=== PATIENT | female | born 1985 | race Caucasian/White ===

== ENCOUNTER 2018-07-07 17:25 | Emergency (ER) | payer BC, MEDICAID ==
[2018-07-07 17:38] VITALS: RESP 18
[2018-07-07] MEDS ORDERED: CYCLOBENZAPRINE 10MG STARTER 3 TAB BTL PO STA (18:17)
[2018-07-07] MEDS ORDERED: DIAZEPAM 5 MG TAB PO STA (18:17)
[2018-07-07] MEDS ORDERED: KETOROLAC 60 MG/2 ML VIAL IM STA (18:18)
--- NOTE | 2018-07-07 18:20 | ED ---
Neck Injury/Pain HPI - General Chief Complaint: Neck Pain/Injury Stated Complaint: NECK PAIN Time Seen by Provider: 07/07/18 17:37 Mode of arrival: ambulatory Limitations: no limitations - History of Present Illness Initial Comments: 33-year-old female with no past medical history presenting today for chief complaint of neck pain on the left side. Patient states that she woke up with left-sided neck pain. She states she is unable to turn for the left due to pain. Patient denies any trauma. Patient denies any fever or chills night sweats, nausea vomiting, neck injury. Patient also numbness tingling or loss sensation of the upper extremity. Patient denies any history of cancer. Patient denies any dizziness. patient states she has had upper respiratory symptoms. Denies photophobia. Denies right-sided neck pain. Remaining review of system negative, Patient denies any recent shortness of breath, chest pain, back pain, abdominal pain, nausea or vomiting, numbness or tingling, dysuria or hematuria, constipation or diarrhea, headaches or visual changes, or any other complaints.patient states the pain is reproducible to palpation. Patient states with her neck still there is decreased pain agitated with rotation to the left. - Related Data Home Medications Medication Instructions Recorded Confirmed 78/Iron/Folate 1/Dha 1 each PO DAILY 10/10/15 10/10/15 [Prenate Dha Softgel] Previous Rx's Medication Instructions Recorded Ibuprofen [Motrin] 600 mg PO Q6HR PRN #30 tab 10/12/15 Cyclobenzaprine [Flexeril] 10 mg PO TID PRN 7 Days #21 tab 07/07/18 Ibuprofen 800 mg PO Q8H PRN 7 Days #21 tablet 07/07/18 Allergies Allergy/AdvReac Type Severity Reaction Status Date / Time No Known Allergies Allergy Verified 10/10/15 22:09 Review of Systems ROS Statement: Those systems with pertinent positive or pertinent negative responses have been documented in the HPI. ROS Other: All systems not noted in ROS Statement are negative. Past Medical History Past Medical History: No Reported History History of Any Multi-Drug Resistant Organisms: None Reported Additional Past Surgical History / Comment(s): colposcopy Past Anesthesia/Blood Transfusion Reactions: No Reported Reaction Past Psychological History: No Psychological Hx Reported Smoking Status: Never smoker Past Alcohol Use History: Occasional Past Drug Use History: None Reported - Past Family History Father Family Medical History: No Reported History General Exam - General Exam Comments Initial Comments: General: The patient is awake and alert, in no distress, and does not appear acutely ill. Eye: +3 mm pupils are equal, round and reactive to light, extra-ocular movements are intact. No nystagmus. There is normal conjunctiva bilaterally. No signs of icterus. Ears, nose, mouth and throat: There are moist mucous membranes and no oral lesions. no photophobia. (-) [place] Neck: The neck is supple, there is no tenderness or JVD. no midline tenderness to palpation of the cervical spine. There is left-sided palpable muscle tension and spasm. As well as paravertebral tenderness on the left side. No paravertebral tenderness of the right side of the neck muscle spasm. patient limited motion of the cervical spine to the left second to pain. Cardiovascular: There is a regular rate and rhythm. No murmur, rub or gallop is appreciated. Respiratory: Lungs are clear to auscultation, respirations are non-labored, breath sounds are equal. No wheezes, stridor, rales, or rhonchi. Gastrointestinal: Soft, non-distended, non-tender abdomen without masses or organomegaly noted. There is no rebound or guarding present. Musculoskeletal: Normal ROM, no tenderness. Strength 5/5 of UE. Sensation intact of UE. Radial pulses equal bilaterally 2+. Neurological: A&O x 3. CN II-XII intact, There are no obvious motor or sensory deficits. Coordination appears grossly intact. Speech is normal. Skin: Skin is warm and dry and no rashes or lesions are noted. Psychiatric: Cooperative, appropriate mood & affect, normal judgment. Limitations: no limitations Course Vital Signs 07/07/18 07/07/18 17:29 19:18 Temperature 98.2 F 98.4 F Pulse Rate 97 70 Respiratory 18 18 Rate Blood Pressure 127/86 133/84 O2 Sat by Pulse 98 98 Oximetry Medical Decision Making - Medical Decision Making well-appearing 33-year-old female presenting today for chief complaint of left- sided neck pain. The pain is posterior left side of neck-palpable spasm. Along the trapezius muscle. Patient exam concerning for muscle skeletal cause. No midline tenderness. Imaging studies negative for acute osseous process. Patient given symptomatic treatment. Patient states she has not had basic laboratory studies and a long time patient basic laboratory studies within normal limits. Patient appears well. No additional complaints. No focal deficits. No concerning history. At this time for patient is stable for discharge with outpatient symptomatic treatment and follow-up with primary care provider. Patient is agreeable plan discharge. Denies question at this time. Did discuss case attending cheri Zuleta prior to patient's discharge is agreeable plan - Lab Data Result diagrams: 07/07/18 18:30 07/07/18 18:30 Lab Results 07/07/18 07/07/18 Range/Units 18:30 18:30 WBC 8.2 (3.8-10.6) k/uL RBC 4.73 (3.80-5.40) m/uL Hgb 14.1 (11.4-16.0) gm/dL Hct 39.9 (34.0-46.0) % MCV 84.3 (80.0-100.0) fL MCH 29.8 (25.0-35.0) pg MCHC 35.4 (31.0-37.0) g/dL RDW 13.5 (11.5-15.5) % Plt Count 278 (150-450) k/uL Neutrophils % 65 % Lymphocytes % 26 % Monocytes % 5 % Eosinophils % 1 % Basophils % 1 % Neutrophils # 5.3 (1.3-7.7) k/uL Lymphocytes # 2.1 (1.0-4.8) k/uL Monocytes # 0.4 (0-1.0) k/uL Eosinophils # 0.1 (0-0.7) k/uL Basophils # 0.0 (0-0.2) k/uL Sodium 141 (137-145) mmol/L Potassium 4.1 (3.5-5.1) mmol/L Chloride 105 (98-107) mmol/L Carbon Dioxide 25 (22-30) mmol/L Anion Gap 11 mmol/L BUN 10 (7-17) mg/dL Creatinine 0.48 L (0.52-1.04) mg/dL Est GFR (CKD-EPI)AfAm >90 (>60 ml/min/1.73 sqM) Est GFR (CKD-EPI)NonAf >90 (>60 ml/min/1.73 sqM) Glucose 103 H (74-99) mg/dL Calcium 9.2 (8.4-10.2) mg/dL Total Bilirubin 0.5 (0.2-1.3) mg/dL AST 27 (14-36) U/L ALT 51 (9-52) U/L Alkaline Phosphatase 69 (38-126) U/L Total Protein 7.3 (6.3-8.2) g/dL Albumin 4.3 (3.5-5.0) g/dL Lipase 153 (23-300) U/L Disposition Clinical Impression: Acute strain of neck muscle Disposition: HOME SELF-CARE Instructions (If sedation given, give patient instructions): Cervical Strain (ED), Acute Neck Pain (ED) Additional Instructions: Please use medication as discussed. Please follow-up with family doctor in the next 2 days.. Please return to emergency room if the symptoms increase or wor sen or for any other concerns. Prescriptions: Cyclobenzaprine [Flexeril] 10 mg PO TID PRN 7 Days #21 tab PRN Reason: Muscle Spasm Ibuprofen 800 mg PO Q8H PRN 7 Days #21 tablet PRN Reason: Pain Is patient prescribed a controlled substance at d/c from ED?: No Referrals: Suman Masterson DO [Primary Care Provider] - 1-2 days Time of Disposition: 18:20
[2018-07-07 18:57] LABS: Basophils % (A) 1 %; Eosinophils # (A) 0.1 k/uL (0-0.7); Eosinophils % (A) 1 %; HCT 39.9 % (34.0-46.0); HGB 14.1 gm/dL (11.4-16.0); Lymphocytes # (A) 2.1 k/uL (1.0-4.8); Lymphocytes % (A) 26 %; MCH 29.8 pg (25.0-35.0); MCHC 35.4 g/dL (31.0-37.0); MCV 84.3 fL (80.0-100.0); Mean Platelet Volume 6.8; Monocytes # (A) 0.4 k/uL (0-1.0); Monocytes % (A) 5 %; Neutrophils # (A) 5.3 k/uL (1.3-7.7); Neutrophils % (A) 65 %; Platelet Count 278 k/uL (150-450); RBC 4.73 m/uL (3.80-5.40); RDW 13.5 % (11.5-15.5); WBC 8.2 k/uL (3.8-10.6)
[2018-07-07 19:04] LABS: ALT 51 U/L (9-52); AST 27 U/L (14-36); Albumin 4.3 g/dL (3.5-5.0); Alkaline Phosphatase 69 U/L (38-126); Anion Gap 11 mmol/L; Blood Urea Nitrogen 10 mg/dL (7-17); Calcium 9.2 mg/dL (8.4-10.2); Carbon Dioxide 25 mmol/L (22-30); Chloride 105 mmol/L (98-107); Glucose 103 mg/dL (74-99); Lipase 153 U/L (23-300); Potassium 4.1 mmol/L (3.5-5.1); Sodium 141 mmol/L (137-145); Total Bilirubin 0.5 mg/dL (0.2-1.3); Total Protein 7.3 g/dL (6.3-8.2)
[2018-07-07 19:19] VITALS: BP 133/84; PULSE 70; TEMP 98.4
== END 2018-07-07 19:26 | disposition home or self-care (01) ==
LOC: EC 17:25
DX: S16.1XXA Strain of muscle, fascia and tendon at neck level, initial encounter (principal); R09.89 Other specified symptoms and signs involving the circulatory and respiratory systems; X58.XXXA Exposure to other specified factors, initial encounter
CPT/HCPCS: 36415; 80053; 83690; 85025; 99283; 96372; J1885

== ENCOUNTER 2018-09-26 06:36 | Emergency (ER) | payer MEDICAID ==
[2018-09-26] MEDS ORDERED: SODIUM CHLORIDE 0.9% 1,000 ML IV STA (07:00)
[2018-09-26] MEDS ORDERED: FAMOTIDINE 20 MG/2 ML VIAL IV STA (07:14)
[2018-09-26 07:27] LABS: Appearance,Urine Cloudy (Clear); Bacteria,Urine Rare /hpf; Bilirubin,Urine Negative (Negative); Blood,Urine Trace (Negative); Color,Urine Yellow; Glucose,Urine (UA) Negative (Negative); Ketones,Urine Negative (Negative); Leukocyte Esterase,Urine Trace (Negative); Mucus,Urine Moderate /hpf; Nitrite,Urine Negative (Negative); Protein,Urine Trace (Negative); RBC,Urine 4 /hpf (0-5); Specific Gravity,Urine 1.034 (1.001-1.035); Squamous Epithelial Cell,Urine 6 /hpf (0-4); Urobilinogen,Urine <2.0 mg/dL (<2.0)
[2018-09-26 07:33] LABS: ALT 58 U/L (9-52); AST 33 U/L (14-36); Albumin 4.3 g/dL (3.5-5.0); Alkaline Phosphatase 62 U/L (38-126); Amylase 66 U/L (30-110); Anion Gap 11 mmol/L; Blood Urea Nitrogen 12 mg/dL (7-17); Carbon Dioxide 23 mmol/L (22-30); Chloride 104 mmol/L (98-107); Glucose 103 mg/dL (74-99); Lipase 93 U/L (23-300); Potassium 4.1 mmol/L (3.5-5.1); Sodium 138 mmol/L (137-145); Total Bilirubin 0.5 mg/dL (0.2-1.3); Total Protein 7.1 g/dL (6.3-8.2)
[2018-09-26 07:34] LABS: Basophils % (A) 0 %; Eosinophils # (A) 0.1 k/uL (0-0.7); Eosinophils % (A) 2 %; HCT 41.8 % (34.0-46.0); HGB 14.1 gm/dL (11.4-16.0); Lymphocytes # (A) 2.2 k/uL (1.0-4.8); Lymphocytes % (A) 25 %; MCH 28.5 pg (25.0-35.0); MCHC 33.7 g/dL (31.0-37.0); MCV 84.4 fL (80.0-100.0); Mean Platelet Volume 7.3; Monocytes # (A) 0.2 k/uL (0-1.0); Monocytes % (A) 3 %; Neutrophils % (A) 70 %; Platelet Count 260 k/uL (150-450); RBC 4.95 m/uL (3.80-5.40); RDW 14.3 % (11.5-15.5); WBC 8.7 k/uL (3.8-10.6)
--- NOTE | 2018-09-26 07:43 | ED ---
Abdominal Pain HPI - General Chief Complaint: Abdominal Pain Stated Complaint: abd pain Time Seen by Provider: 09/26/18 07:00 Source: patient, RN notes reviewed Mode of arrival: ambulatory Limitations: no limitations - History of Present Illness Initial Comments: 33-year-old female presents emergency Department chief complaint of upper abdominal pain. Patient states last 2 nights she's had extreme pain in [place] night in her epigastric and right upper quadrant region. Patient states that his been exacerbated by anything, patient states it wakes up from her sleep. Patient states at the time nothing makes it feel better or worse. Patient denies any change in oral intake. She has no food bothered her at this time denies any reflux denies diarrhea, constipation, nausea vomiting. Patient's had no prior abdominal surgeries. Patient does take control and denies any chance . Denies chest pain or shortness breath. Patient states that a few months ago she had similar complaints of this but it resolved on its own. - Related Data Home Medications Medication Instructions Recorded Confirmed Norgestimate-Ethinyl Estradiol 1 tab PO DAILY 09/26/18 09/26/18 [Gsw-Lk-Gfvnaigq Tablet] valACYclovir HCL [Valtrex] 1,000 mg PO DAILY 09/26/18 09/26/18 Allergies Allergy/AdvReac Type Severity Reaction Status Date / Time No Known Allergies Allergy Verified 09/26/18 08:03 Review of Systems ROS Statement: Those systems with pertinent positive or pertinent negative responses have been documented in the HPI. ROS Other: All systems not noted in ROS Statement are negative. Past Medical History Past Medical History: No Reported History History of Any Multi-Drug Resistant Organisms: None Reported Additional Past Surgical History / Comment(s): colposcopy Past Anesthesia/Blood Transfusion Reactions: No Reported Reaction Past Psychological History: No Psychological Hx Reported Smoking Status: Never smoker Past Alcohol Use History: Occasional Past Drug Use History: None Reported - Past Family History Father Family Medical History: No Reported History General Exam Limitations: no limitations General appearance: alert, in no apparent distress Head exam: Present: atraumatic, normocephalic, normal inspection Respiratory exam: Present: normal lung sounds bilaterally. Absent: respiratory distress, wheezes, rales, rhonchi, stridor Cardiovascular Exam: Present: regular rate, normal rhythm, normal heart sounds. Absent: systolic murmur, diastolic murmur, rubs, gallop, clicks GI/Abdominal exam: Present: soft, tenderness (Mild right upper quadrant and ep igastric tenderness), normal bowel sounds. Absent: distended, guarding, rebound, rigid Back exam: Absent: CVA tenderness (R), CVA tenderness (L) Neurological exam: Present: alert Skin exam: Present: warm, dry, intact, normal color. Absent: rash Course Vital Signs 09/26/18 06:40 Temperature 97.5 F L Pulse Rate 84 Respiratory 20 Rate Blood Pressure 136/84 O2 Sat by Pulse 99 Oximetry Medical Decision Making - Medical Decision Making 33-year-old female presented from for abdominal pain. Patient gallbladder is enlarged, mild thickening. Patient has minimal dilated common bile left with no stones. Patient's symptoms are very mild this time we discussed inpatient versus outpatient follow-up. Patient will follow-up with her PCP and surgeon. Return parameters were discussed. - Lab Data Result diagrams: 09/26/18 07:02 09/26/18 07:02 Lab Results 09/26/18 09/26/18 09/26/18 Range/Units 07:02 07:02 07:02 WBC 8.7 (3.8-10.6) k/uL RBC 4.95 (3.80-5.40) m/uL Hgb 14.1 (11.4-16.0) gm/dL Hct 41.8 (34.0-46.0) % MCV 84.4 (80.0-100.0) fL MCH 28.5 (25.0-35.0) pg MCHC 33.7 (31.0-37.0) g/dL RDW 14.3 (11.5-15.5) % Plt Count 260 (150-450) k/uL Neutrophils % 70 % Lymphocytes % 25 % Monocytes % 3 % Eosinophils % 2 % Basophils % 0 % Neutrophils # 6.0 (1.3-7.7) k/uL Lymphocytes # 2.2 (1.0-4.8) k/uL Monocytes # 0.2 (0-1.0) k/uL Eosinophils # 0.1 (0-0.7) k/uL Basophils # 0.0 (0-0.2) k/uL Sodium 138 (137-145) mmol/L Potassium 4.1 (3.5-5.1) mmol/L Chloride 104 (98-107) mmol/L Carbon Dioxide 23 (22-30) mmol/L Anion Gap 11 mmol/L BUN 12 (7-17) mg/dL Creatinine 0.53 (0.52-1.04) mg/dL Est GFR (CKD-EPI)AfAm >90 (>60 ml/min/1.73 sqM) Est GFR (CKD-EPI)NonAf >90 (>60 ml/min/1.73 sqM) Glucose 103 H (74-99) mg/dL Calcium 10.0 (8.4-10.2) mg/dL Total Bilirubin 0.5 (0.2-1.3) mg/dL AST 33 (14-36) U/L ALT 58 H (9-52) U/L Alkaline Phosphatase 62 (38-126) U/L Total Protein 7.1 (6.3-8.2) g/dL Albumin 4.3 (3.5-5.0) g/dL Amylase 66 (30-110) U/L Lipase 93 (23-300) U/L Urine Color Urine Appearance (Clear) Urine pH (5.0-8.0) Ur Specific [place] (1.001-1.035) Urine Protein (Negative) Urine Glucose (UA) (Negative) Urine Ketones (Negative) Urine Blood (Negative) Urine Nitrite (Negative) Urine Bilirubin (Negative) Urine Urobilinogen (<2.0) mg/dL Ur Leukocyte Esterase (Negative) Urine RBC (0-5) /hpf Urine WBC (0-5) /hpf Ur Squamous Epith Cells (0-4) /hpf Urine Bacteria (None) /hpf Urine Mucus (None) /hpf Urine HCG, Qual Not Detected (Not Detectd) 09/26/18 Range/Units 07:02 WBC (3.8-10.6) k/uL RBC (3.80-5.40) m/uL Hgb (11.4-16.0) gm/dL Hct (34.0-46.0) % MCV (80.0-100.0) fL MCH (25.0-35.0) pg MCHC (31.0-37.0) g/dL RDW (11.5-15.5) % Plt Count (150-450) k/uL Neutrophils % % Lymphocytes % % Monocytes % % Eosinophils % % Basophils % % Neutrophils # (1.3-7.7) k/uL Lymphocytes # (1.0-4.8) k/uL Monocytes # (0-1.0) k/uL Eosinophils # (0-0.7) k/uL Basophils # (0-0.2) k/uL Sodium (137-145) mmol/L Potassium (3.5-5.1) mmol/L Chloride (98-107) mmol/L Carbon Dioxide (22-30) mmol/L Anion Gap mmol/L BUN (7-17) mg/dL Creatinine (0.52-1.04) mg/dL Est GFR (CKD-EPI)AfAm (>60 ml/min/1.73 sqM) Est GFR (CKD-EPI)NonAf (>60 ml/min/1.73 sqM) Glucose (74-99) mg/dL Calcium (8.4-10.2) mg/dL Total Bilirubin (0.2-1.3) mg/dL AST (14-36) U/L ALT (9-52) U/L Alkaline Phosphatase (38-126) U/L Total Protein (6.3-8.2) g/dL Albumin (3.5-5.0) g/dL Amylase (30-110) U/L Lipase (23-300) U/L Urine Color Yellow Urine Appearance Cloudy H (Clear) Urine pH 6.0 (5.0-8.0) Ur Specific [place] 1.034 (1.001-1.035) Urine Protein Trace H (Negative) Urine Glucose (UA) Negative (Negative) Urine Ketones Negative (Negative) Urine Blood Trace H (Negative) Urine Nitrite Negative (Negative) Urine Bilirubin Negative (Negative) Urine Urobilinogen <2.0 (<2.0) mg/dL Ur Leukocyte Esterase Trace H (Negative) Urine RBC 4 (0-5) /hpf Urine WBC 3 (0-5) /hpf Ur Squamous Epith Cells 6 H (0-4) /hpf Urine Bacteria Rare H (None) /hpf Urine Mucus Moderate H (None) /hpf Urine HCG, Qual (Not Detectd) Disposition Clinical Impression: Dysfunctional gallbladder, Biliary colic, Enlarged gallbladder Disposition: HOME SELF-CARE Condition: Stable Instructions (If sedation given, give patient instructions): Abdominal Pain (ED) Additional Instructions: Please return to the Emergency Department if symptoms worsen or any other concerns. Is patient prescribed a controlled substance at d/c from ED?: No Referrals: Suman Masterson DO [Primary Care Provider] - 1-2 days Lydia Farrar MD [STAFF PHYSICIAN] - 1-2 days Time of Disposition: 08:25
--- NOTE | 2018-09-26 08:10 | US ---
EXAMINATION TYPE: US abdomen limited DATE OF EXAM: 09/26/2018 COMPARISON: NONE CLINICAL HISTORY: Pain. Abd pain x 2 nights, no N/V EXAM MEASUREMENTS: Liver Length: 15.0 cm Gallbladder Wall: 0.4 cm CBD: 0.7 cm Right Kidney: 9.5 x 5.7 x 4.1cm cm Pancreas: wnl Liver: difficult to penetrate, there is a coarse echotexture, intercostal imaging appears wnl Gallbladder: hydropic in appearance with largest measurement of 12.5cm Evidence for sonographic Posada's sign: not during exam but patient says that is where is hurts wh en she has an episode. CBD: Dilated Right Kidney: wnl There is no ascites. IMPRESSION: There are some limitations to the exam. Correlate for hepatic steatosis, hepatocellular d isease. Common bile duct is dilated with borderline gallbladder wall thickening, consider gastroenter ology, surgical consult.
[2018-09-26] MEDS ORDERED: ONDANSETRON 4 MG ODT STARTER PACK 2 TAB BTL PO STA (08:25)
[2018-09-26] MEDS ORDERED: ACET/COD 300 MG/30 MG STARTER PACK 6 TAB BTL PO STA (08:25)
[2018-09-26 08:51] VITALS: BP 113/92; PULSE 62; RESP 16; TEMP 98
== END 2018-09-26 08:36 | disposition home or self-care (01) ==
LOC: EC 06:36
DX: K80.50 Calculus of bile duct without cholangitis or cholecystitis without obstruction (principal); K82.8 Other specified diseases of gallbladder; Z79.3 Long term (current) use of hormonal contraceptives
CPT/HCPCS: 36415; 80053; 82150; 83690; 85025; 81001; 81025; 76705; 99284; 96374; 96361; S0119

== ENCOUNTER → 2019-02-01 | Outpatient (CLI) | payer MEDICAID ==
--- NOTE | 2019-02-01 09:07 | NM ---
EXAMINATION TYPE: NM hepatobiliary w CCK DATE OF EXAM: 02/01/2019 COMPARISON: NONE INDICATION: Right upper quadrant pain TECHNIQUE: After the intravenous administration of 4.38 mCi Tc 99m Mebrofenin hepatobiliary scintigra phy is performed. Images were obtained immediately post injection. FINDINGS: There is prompt uptake and excretion of radiotracer by the liver. Extrahepatic ducts are identified at 7 minutes. The gallbladder is visualized within 30 seconds minutes. Small bowel activity is noted within 14 minutes. At one hour CCK was administered, patient was injected with 1.4 mcg of Kinevac, and gallbladder eject ion fraction is calculated at 17 %, which is low. (Normal >35% and <80%.). IMPRESSION: 1. Biliary hypokinesia. No obstruction is evident.
== END | disposition home or self-care (01) ==
LOC: RADNMMAIN 06:55
PROVIDERS: ATTEND Family Medicine
DX: K83.8 Other specified diseases of biliary tract (principal)
CPT/HCPCS: 78227; A9537; J2805

== ENCOUNTER 2019-07-08 02:51 | Emergency (ER) | payer MEDICAID ==
[2019-07-08 02:58] VITALS: BP 159/107; PULSE 79; RESP 16; TEMP 97.8
[2019-07-08] MEDS ORDERED: ONDANSETRON 4 MG/2 ML VIAL IVP STA (03:06)
[2019-07-08] MEDS ORDERED: SODIUM CHLORIDE 0.9% 1,000 ML IV STA (03:06)
[2019-07-08] MEDS ORDERED: KETOROLAC 30 MG/ML 1 ML VIAL IVP STA (03:06)
--- NOTE | 2019-07-08 03:23 | ED ---
Abdominal Pain HPI - General Chief Complaint: Abdominal Pain Stated Complaint: Gall Bladder Time Seen by Provider: 07/08/19 02:59 Source: patient Mode of arrival: ambulatory Limitations: no limitations - History of Present Illness Initial Comments: Patient is a 34-year-old female presenting to emergency Department with chief complaint of collar pain. Patient states few months ago she had a high-risk and perform showing no obvious signs of obstruction but did show improper function of the biliary tree. Patient states she typically has "stomach attacks" quickly but the last about 30 minutes. Patient states this one has lasted several hours. States this is a continuous sharp sensation in the right upper quadrant. States the pain is not exacerbated with by mouth intake. Does report some nausea but denies any vomiting. Denies diarrhea or constipation. Denies fevers or chills. Does report taking Tylenol home which typically alleviates his symptoms but not this time. - Related Data Home Medications Medication Instructions Recorded Confirmed Norgestimate-Ethinyl Estradiol 1 tab PO DAILY 09/26/18 09/26/18 [Ary-Mw-Ejqaawby Tablet] valACYclovir HCL [Valtrex] 1,000 mg PO DAILY 09/26/18 09/26/18 Allergies Allergy/AdvReac Type Severity Reaction Status Date / Time No Known Allergies Allergy Verified 07/08/19 02:58 Review of Systems ROS Statement: Those systems with pertinent positive or pertinent negative responses have been documented in the HPI. ROS Other: All systems not noted in ROS Statement are negative. Past Medical History Past Medical History: No Reported History History of Any Multi-Drug Resistant Organisms: None Reported Additional Past Surgical History / Comment(s): colposcopy Past Anesthesia/Blood Transfusion Reactions: No Reported Reaction Past Psychological History: No Psychological Hx Reported Smoking Status: Never smoker Past Alcohol Use History: Occasional Past Drug Use History: None Reported - Past Family History Father Family Medical History: No Reported History General Exam Limitations: no limitations General appearance: alert, in no apparent distress Head exam: Present: atraumatic, normocephalic, normal inspection Eye exam: Present: normal appearance Pupils: Present: normal accommodation ENT exam: Present: normal exam Neck exam: Present: normal inspection, full ROM Respiratory exam: Present: normal lung sounds bilaterally Cardiovascular Exam: Present: regular rate, normal rhythm, normal heart sounds GI/Abdominal exam: Present: soft, tenderness (Right upper quadrant abdominal tenderness. Negative Posada's sign). Absent: distended, guarding, rebound, rigid Extremities exam: Present: normal inspection, full ROM Back exam: Present: normal inspection, full ROM Neurological exam: Present: alert, oriented X3 Psychiatric exam: Present: normal affect, normal mood Skin exam: Present: warm, dry, intact, normal color Course Vital Signs 07/08/19 02:56 Temperature 97.8 F Pulse Rate 79 Respiratory 16 Rate Blood Pressure 159/107 O2 Sat by Pulse 99 Oximetry Medical Decision Making - Medical Decision Making Patient is a 34-year-old female with history of colicky pain presenting to emergency Department with a chief complaint of gallbladder pain. Patient appears to the right upper quadrant tenderness with a negative Posada sign. Patient had a HIDA scan performed 5 months ago showing no signs of obstruction but was positive for biliary hypokinesia. Patient had a recent abdominal ultrasound performed showing no obvious sign of obstruction. Laboratory work shows mild elevation in transaminases but otherwise unremarkable. This type of pain is typical for a patient and they usually last for about 30 minutes but this will last a more usual which is what she came in. Patient was given fluids, antiemetics and Toradol. On reevaluation patient reports the pain has completely resolved. Patient states she is comfortable going home. Her vitals are stable. Patient reports typically she tries to avoid eating any fatty food. Return parameters were thoroughly discussed with patient was understanding and agreeable. Case discussed with physician. - Lab Data Result diagrams: 07/08/19 03:43 07/08/19 03:43 Lab Results 07/08/19 07/08/19 07/08/19 Range/Units 03:43 03:43 03:43 WBC 7.3 (3.8-10.6) k/uL RBC 4.67 (3.80-5.40) m/uL Hgb 13.7 (11.4-16.0) gm/dL Hct 39.6 (34.0-46.0) % MCV 84.7 (80.0-100.0) fL MCH 29.2 (25.0-35.0) pg MCHC 34.5 (31.0-37.0) g/dL RDW 12.6 (11.5-15.5) % Plt Count 224 (150-450) k/uL Neutrophils % 56 % Lymphocytes % 35 % Monocytes % 4 % Eosinophils % 2 % Basophils % 0 % Neutrophils # 4.1 (1.3-7.7) k/uL Lymphocytes # 2.5 (1.0-4.8) k/uL Monocytes # 0.3 (0-1.0) k/uL Eosinophils # 0.2 (0-0.7) k/uL Basophils # 0.0 (0-0.2) k/uL Sodium 135 L (137-145) mmol/L Potassium 4.1 (3.5-5.1) mmol/L Chloride 101 (98-107) mmol/L Carbon Dioxide 25 (22-30) mmol/L Anion Gap 9 mmol/L BUN 10 (7-17) mg/dL Creatinine 0.55 (0.52-1.04) mg/dL Est GFR (CKD-EPI)AfAm >90 (>60 ml/min/1.73 sqM) Est GFR (CKD-EPI)NonAf >90 (>60 ml/min/1.73 sqM) Glucose 99 (74-99) mg/dL Calcium 9.0 (8.4-10.2) mg/dL Total Bilirubin 0.4 (0.2-1.3) mg/dL AST 28 (14-36) U/L ALT 38 H (4-34) U/L Alkaline Phosphatase 66 (38-126) U/L Total Protein 7.2 (6.3-8.2) g/dL Albumin 4.4 (3.5-5.0) g/dL Amylase 53 (30-110) U/L Lipase 109 (23-300) U/L Urine Color Yellow Urine Appearance Clear (Clear) Urine pH 6.0 (5.0-8.0) Ur Specific [place] 1.028 (1.001-1.035) Urine Protein Trace H (Negative) Urine Glucose (UA) Negative (Negative) Urine Ketones Negative (Negative) Urine Blood Negative (Negative) Urine Nitrite Negative (Negative) Urine Bilirubin Negative (Negative) Urine Urobilinogen <2.0 (<2.0) mg/dL Ur Leukocyte Esterase Negative (Negative) Disposition Clinical Impression: Abdominal pain, Right upper quadrant abdominal pain Disposition: HOME SELF-CARE Condition: Stable Instructions (If sedation given, give patient instructions): Abdominal Pain (ED) Additional Instructions: Alternate between Tylenol and Motrin for pain control. Follow-up with Dr. Pryor. Return to emergency department if symptoms worsen. Is patient prescribed a controlled substance at d/c from ED?: No Referrals: Suman Masterson DO [Primary Care Provider] - 1-2 days Time of Disposition: 04:26
[2019-07-08 03:56] LABS: Appearance,Urine Clear (Clear); Basophils % (A) 0 %; Bilirubin,Urine Negative (Negative); Blood,Urine Negative (Negative); Color,Urine Yellow; Eosinophils # (A) 0.2 k/uL (0-0.7); Eosinophils % (A) 2 %; Glucose,Urine (UA) Negative (Negative); HCT 39.6 % (34.0-46.0); HGB 13.7 gm/dL (11.4-16.0); Ketones,Urine Negative (Negative); Leukocyte Esterase,Urine Negative (Negative); Lymphocytes # (A) 2.5 k/uL (1.0-4.8); Lymphocytes % (A) 35 %; MCH 29.2 pg (25.0-35.0); MCHC 34.5 g/dL (31.0-37.0); MCV 84.7 fL (80.0-100.0); Mean Platelet Volume 7.5; Monocytes # (A) 0.3 k/uL (0-1.0); Monocytes % (A) 4 %; Neutrophils # (A) 4.1 k/uL (1.3-7.7); Neutrophils % (A) 56 %; Nitrite,Urine Negative (Negative); Platelet Count 224 k/uL (150-450); Protein,Urine Trace (Negative); RBC 4.67 m/uL (3.80-5.40); RDW 12.6 % (11.5-15.5); Specific Gravity,Urine 1.028 (1.001-1.035); Urobilinogen,Urine <2.0 mg/dL (<2.0); WBC 7.3 k/uL (3.8-10.6)
[2019-07-08 04:04] LABS: ALT 38 U/L (4-34); AST 28 U/L (14-36); African American GFR (CKD) >90 (>60 ml/min/1.73 sqM); Albumin 4.4 g/dL (3.5-5.0); Alkaline Phosphatase 66 U/L (38-126); Amylase 53 U/L (30-110); Anion Gap 9 mmol/L; Blood Urea Nitrogen 10 mg/dL (7-17); Carbon Dioxide 25 mmol/L (22-30); Chloride 101 mmol/L (98-107); Glucose 99 mg/dL (74-99); Non-African American GFR(CKD) >90 (>60 ml/min/1.73 sqM); Potassium 4.1 mmol/L (3.5-5.1); Sodium 135 mmol/L (137-145); Total Bilirubin 0.4 mg/dL (0.2-1.3); Total Protein 7.2 g/dL (6.3-8.2)
== END 2019-07-08 04:41 | disposition home or self-care (01) ==
LOC: EC 02:51
DX: R10.11 Right upper quadrant pain (principal); R74.0 Nonspecific elevation of levels of transaminase and lactic acid dehydrogenase [LDH]; R11.0 Nausea; Z79.3 Long term (current) use of hormonal contraceptives
CPT/HCPCS: 36415; 80053; 82150; 83690; 85025; 81003; 99284; 96374; 96375; 96361; J2405; J1885

== ENCOUNTER 2019-07-15 | Day surgery (SDC) | payer MEDICAID | END 2019-07-15 11:07 | disposition home or self-care (01) | CPT/HCPCS: 81025; 88304; 47562; J2250; J1200; J1644; J1100; J2710; J0690; J2405; J2001; J3010; J1885; J0330; J2704; J1170 ==

== ENCOUNTER 2019-07-15 01:32 | Emergency (ER) | payer MEDICAID ==
[2019-07-15] MEDS ORDERED: SODIUM CHLORIDE 0.9% 1,000 ML IV STA (01:54)
[2019-07-15] MEDS ORDERED: ONDANSETRON 4 MG/2 ML VIAL IVP STA (01:54)
[2019-07-15] MEDS ORDERED: MORPHINE SULFATE 4 MG/ML SYRINGE IV STA (01:54)
[2019-07-15 02:20] LABS: Basophils % (A) 0 %; Eosinophils # (A) 0.1 k/uL (0-0.7); Eosinophils % (A) 2 %; HCT 40.5 % (34.0-46.0); HGB 14.1 gm/dL (11.4-16.0); Lymphocytes # (A) 2.6 k/uL (1.0-4.8); Lymphocytes % (A) 32 %; MCH 29.1 pg (25.0-35.0); MCHC 34.8 g/dL (31.0-37.0); MCV 83.6 fL (80.0-100.0); Mean Platelet Volume 7.3; Monocytes # (A) 0.4 k/uL (0-1.0); Monocytes % (A) 4 %; Neutrophils % (A) 61 %; Platelet Count 266 k/uL (150-450); RBC 4.85 m/uL (3.80-5.40); RDW 12.8 % (11.5-15.5); WBC 8.2 k/uL (3.8-10.6)
[2019-07-15 02:29] LABS: ALT 31 U/L (4-34); AST 26 U/L (14-36); African American GFR (CKD) >90 (>60 ml/min/1.73 sqM); Albumin 4.5 g/dL (3.5-5.0); Alkaline Phosphatase 63 U/L (38-126); Amylase 72 U/L (30-110); Anion Gap 8 mmol/L; Blood Urea Nitrogen 18 mg/dL (7-17); Calcium 9.5 mg/dL (8.4-10.2); Carbon Dioxide 26 mmol/L (22-30); Chloride 101 mmol/L (98-107); Glucose 113 mg/dL (74-99); Non-African American GFR(CKD) >90 (>60 ml/min/1.73 sqM); Potassium 4.1 mmol/L (3.5-5.1); Sodium 135 mmol/L (137-145); Total Bilirubin 0.3 mg/dL (0.2-1.3); Total Protein 7.3 g/dL (6.3-8.2)
[2019-07-15 02:31] LABS: Appearance,Urine Clear (Clear); Bilirubin,Urine Negative (Negative); Blood,Urine Negative (Negative); Color,Urine Light Yellow; Glucose,Urine (UA) Negative (Negative); Ketones,Urine Negative (Negative); Leukocyte Esterase,Urine Negative (Negative); Nitrite,Urine Negative (Negative); Protein,Urine Negative (Negative); Specific Gravity,Urine 1.025 (1.001-1.035); Urobilinogen,Urine <2.0 mg/dL (<2.0)
--- NOTE | 2019-07-15 03:15 | ED ---
Abdominal Pain HPI - General Chief Complaint: Abdominal Pain Stated Complaint: Gall Bladder Source: patient Mode of arrival: ambulatory - History of Present Illness Initial Comments: Char is a pleasant 34-year-old female who was recently been experiencing right upper quadrant abdominal pain. She is scheduled to her gallbladder out this morning however after eating salad with vinaigrette dressing for dinner last night she developed severe stabbing right upper quadrant abdominal pain and was unable to tolerate the pain which got better come the ER for evaluation. Patient denies any fevers chills nausea or vomiting. This pain is identical to previous bouts of gallbladder pain. - Related Data Home Medications Medication Instructions Recorded Confirmed Norgestimate-Ethinyl Estradiol 1 tab PO DAILY 09/26/18 07/13/19 [Elu-Ig-Izvyejjh Tablet] valACYclovir HCL [Valtrex] 1,000 mg PO DAILY 09/26/18 07/13/19 Allergies Allergy/AdvReac Type Severity Reaction Status Date / Time No Known Allergies Allergy Verified 07/15/19 01:39 Review of Systems ROS Statement: Those systems with pertinent positive or pertinent negative responses have been documented in the HPI. ROS Other: All systems not noted in ROS Statement are negative. Past Medical History Past Medical History: No Reported History History of Any Multi-Drug Resistant Organisms: None Reported Additional Past Surgical History / Comment(s): D & C (MISCARRIAGE). colposcopy Past Anesthesia/Blood Transfusion Reactions: No Reported Reaction Past Psychological History: No Psychological Hx Reported Smoking Status: Never smoker Past Alcohol Use History: Occasional Past Drug Use History: None Reported - Past Family History Father Family Medical History: No Reported History General Exam - General Exam Comments Initial Comments: Physical Exam GENERAL: Patient is well-developed and well-nourished. Patient is nontoxic and well-hydrated and is in no distress. HENT: Normocephalic, Atraumatic. EYES: PERRL, EOMI PULMONARY: Unlabored respirations. CARDIOVASCULAR: RRR Warm and well perfused extremities ABDOMEN: Non-distended Tenderness to palpation in the right upper quadrant, non-peritoneal SKIN: No rashes or bruising : Deferred NEUROLOGIC: Alert and oriented Normal speech Normal gait MUSCULOSKELETAL: Moving all extremities with no apparent injury PSYCHIATRIC: No SI/HI Course Vital Signs 07/15/19 07/15/19 01:35 04:13 Temperature 97.9 F 98.3 F Pulse Rate 75 62 Respiratory 20 18 Rate Blood Pressure 143/94 119/77 O2 Sat by Pulse 100 98 Oximetry Medical Decision Making - Medical Decision Making Patient was seen and evaluated, history is obtained from the patient History and physical exam consistent with biliary colic likely secondary to salad dressing which contained oil. Patient's pain was treated with morphine. Patient's labs were unremarkable. At this time patient stable for discharge home, patient will rest in the bed for the next 2-1/2 hours and then ambulate to the surgical center for planned outpatient surgery. - Lab Data Result diagrams: 07/15/19 02:05 07/15/19 02:05 Lab Results 07/15/19 07/15/19 07/15/19 Range/Units 02:05 02:05 02:25 WBC 8.2 (3.8-10.6) k/uL RBC 4.85 (3.80-5.40) m/uL Hgb 14.1 (11.4-16.0) gm/dL Hct 40.5 (34.0-46.0) % MCV 83.6 (80.0-100.0) fL MCH 29.1 (25.0-35.0) pg MCHC 34.8 (31.0-37.0) g/dL RDW 12.8 (11.5-15.5) % Plt Count 266 (150-450) k/uL Neutrophils % 61 % Lymphocytes % 32 % Monocytes % 4 % Eosinophils % 2 % Basophils % 0 % Neutrophils # 5.0 (1.3-7.7) k/uL Lymphocytes # 2.6 (1.0-4.8) k/uL Monocytes # 0.4 (0-1.0) k/uL Eosinophils # 0.1 (0-0.7) k/uL Basophils # 0.0 (0-0.2) k/uL Sodium 135 L (137-145) mmol/L Potassium 4.1 (3.5-5.1) mmol/L Chloride 101 (98-107) mmol/L Carbon Dioxide 26 (22-30) mmol/L Anion Gap 8 mmol/L BUN 18 H (7-17) mg/dL Creatinine 0.65 (0.52-1.04) mg/dL Est GFR (CKD-EPI)AfAm >90 (>60 ml/min/1.73 sqM) Est GFR (CKD-EPI)NonAf >90 (>60 ml/min/1.73 sqM) Glucose 113 H (74-99) mg/dL Calcium 9.5 (8.4-10.2) mg/dL Total Bilirubin 0.3 (0.2-1.3) mg/dL AST 26 (14-36) U/L ALT 31 (4-34) U/L Alkaline Phosphatase 63 (38-126) U/L Total Protein 7.3 (6.3-8.2) g/dL Albumin 4.5 (3.5-5.0) g/dL Amylase 72 (30-110) U/L Lipase 125 (23-300) U/L Urine Color Light Yellow Urine Appearance Clear (Clear) Urine pH 6.0 (5.0-8.0) Ur Specific Pease 1.025 (1.001-1.035) Urine Protein Negative (Negative) Urine Glucose (UA) Negative (Negative) Urine Ketones Negative (Negative) Urine Blood Negative (Negative) Urine Nitrite Negative (Negative) Urine Bilirubin Negative (Negative) Urine Urobilinogen <2.0 (<2.0) mg/dL Ur Leukocyte Esterase Negative (Negative) Disposition Clinical Impression: Right upper quadrant abdominal pain Disposition: HOME SELF-CARE Condition: Stable Additional Instructions: Present to the ER at 7 AM for cholecystectomy as scheduled Is patient prescribed a controlled substance at d/c from ED?: No Referrals: Suman Masterson DO [Primary Care Provider] - 1-2 days
[2019-07-15 04:13] VITALS: BP 119/77; PULSE 62; RESP 18; TEMP 98.3
== END 2019-07-15 04:30 | disposition home or self-care (01) ==
LOC: EC 01:32
DX: R10.11 Right upper quadrant pain (principal); Z87.19 Personal history of other diseases of the digestive system; Z79.3 Long term (current) use of hormonal contraceptives
CPT/HCPCS: 36415; 80053; 82150; 83690; 85025; 81003; 99284; 96374; 96375; 96361; J2270; J2405